=== PATIENT | male | born 1945 | race Caucasian/White ===

== ENCOUNTER 2022-09-21 08:00 | Outpatient (CLI) | payer OTHER, SELFPAY ==
--- NOTE | 2022-09-21 | PETR_ITS ---
PROCEDURE INFORMATION: Exam: PET/CT Skull Base to Mid-thigh Exam date and time: 09/21/2022 10:39 AM Age: 77 years old Clinical indication: Abnormal findings; Lung mass LABS AND CLINICAL REPORTS: Glucose: 114 mg/dl Treatment strategy for malignancy (PET staging): Initial Staging (PI) TECHNIQUE: Imaging protocol: Following at least four-hour fasting and following the injection of radiopharmaceutical, low dose CT images were obtained. Then, PET images were obtained. Attenuation corrected images were constructed using the CT scan. Fused images of PET and CT were reviewed. The standardized uptake values (SUV) reported below are maximum values within a region of interest, expressed in gm/ml. Exam includes orbital meatal line to mid-thigh. Radiopharmaceutical: 12.25 mCi F-18 FDG (Fluorodeoxyglucose), IV. Time of imaging post radiopharmaceutical administration: 1 hour Injection site: Right antecubital COMPARISON: No relevant prior studies available. FINDINGS: Brain: Visualized brain has normal physiologic uptake. Pharynx: There is physiologic appearing uptake in the bilateral palatine tonsils. Larynx: No abnormal uptake. Lungs, pleura and trachea: No abnormal uptake. Evaluation of the lungs is slightly limited by respiratory motion artifact. Dependent streaky density in the lower lobes is consistent with atelectasis. A spiculated noncalcified solid nodular density adjacent to the pleural surface in the inferior medial right lower lobe measuring 2.6 x 1.6 cm on series 3, image 68 is not radiotracer avid. Heart: Normal physiologic uptake. Mediastinal space: No abnormal uptake. Liver: No abnormal uptake. A calcified granuloma in the liver is noted. Gallbladder and bile ducts: No abnormal uptake. Pancreas: No abnormal uptake. Spleen: No abnormal uptake. Calcified granulomas in the spleen are present. Adrenal glands: No abnormal uptake. Kidneys and ureters: Normal physiologic uptake. Stomach and bowel: No abnormal uptake. There are scattered colonic diverticula. Reproductive: There is a large right scrotal hydrocele. The left testis is not well delineated which may be related to atrophy previous orchiectomy Moderate prominence of the prostate gland without elevated uptake. 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 Diffuse atherosclerotic changes are noted including within the coronary arteries. Lymph nodes: Radiotracer avid retroperitoneal lymph nodes are noted. For example a cluster of lymph nodes in the right aortocaval space on series 3, image 112 demonstrates an overall measurement 4.1 x 4.5 cm, SUV max 10.1. Clustered lymph nodes at the level of the aortic bifurcation measuring approximately 6.6 x 3.6 cm on series 3, image 119 are noted, SUV max 10.9. Radiotracer avid left greater than right external iliac chain and bilateral inguinal region lymph nodes are present. For example, a left external iliac chain lymph node on series 3, image 138 measures 4.2 x 2.9 cm, SUV max 10.2. A left inguinal region lymph node measures 3.3 x 2.9 cm on series 3, image 150, SUV max 10.2, and a right inguinal lymph node measures 2.2 cm on series 3, image 151, SUV max 7.8. There are small calcified right hilar lymph nodes without elevated uptake. Bones/joints: Moderate left and severe right hip primary osteoarthritic changes are noted. Elevated uptake is noted in the right hip joint where there are degenerative cystic changes in the femoral head and acetabulum, SUV max 3.7. [id number] diffuse degenerative vertebral body spondylosis is noted. Mild degenerative appearing uptake in the right C3-C4 facet joint is present, SUV max 2.9. Soft tissues: No abnormal uptake in the visualized head, neck, chest, abdomen, pelvis, and extremities. METRICS: Mediastinal blood pool: SUV max 3.0 Liver uptake: SUV max 3.6, SUV mean 2.7 PET/PET skulltothi INITIAL 11530 IMPRESSION: 1. Radiotracer avid lymphadenopathy is noted within the retroperitoneal space within the abdomen and within the bilateral external iliac and inguinal regions consistent with malignancy. 2. A non radiotracer avid pleural based spiculated nodular density in the medial right lower lobe is present which i favors a benign etiology such as scarring or rounded atelectasis. 3. Degenerative appearing uptake in the right hip joint and right C3-C4 facet joint. 4. Old granulomatous changes. 5. 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 6. Large right scrotal hydrocele. 7. Additional nonurgent findings as detailed above.
== END 2022-09-23 05:38 | disposition home or self-care (01) ==
PROVIDERS: PCP Family Medicine; Visit Provider Internal Medicine
DX: R93.89 Abnormal findings on diagnostic imaging of other specified body structures (principal); R91.8 Other nonspecific abnormal finding of lung field; R59.0 Localized enlarged lymph nodes; N43.3 Hydrocele, unspecified
CPT/HCPCS: 78815; A9552